=== PATIENT | male | born 1985 | race Caucasian/White ===

== ENCOUNTER 2022-01-13 21:34 | Emergency (ER) | payer MEDICAID ==
[2022-01-14] MEDS ORDERED: Proparacaine 0.5% Ophth Soln 15 ML Bottle EYERT ONE (00:21)
[2022-01-14] MEDS ORDERED: Fluorescein 1 MG Ophth Strip EYERT ONE (00:23)
[2022-01-14] MEDS ORDERED: Gentamicin 0.3% Ophth Soln 5 ML Bottle ONE (00:54)
[2022-01-14] MEDS ORDERED: Gentamicin 0.3% Ophth Soln 5 ML Bottle EYERT SCH (09:00)
== END 2022-01-14 00:58 | disposition home or self-care (01) ==
LOC: JD.ED 21:34
DX: S05.01XA Injury of conjunctiva and corneal abrasion without foreign body, right eye, initial encounter (principal); Z72.0 Tobacco use; W22.8XXA Striking against or struck by other objects, initial encounter
CPT/HCPCS: 99283

== ENCOUNTER 2024-01-28 03:54 | Emergency (ER) | payer MEDICAID, OTHER | END 2024-01-28 04:25 | LOC: JD.ED 03:54 | DX: Z02.89 Encounter for other administrative examinations (principal); F10.90 Alcohol use, unspecified, uncomplicated; Y90.9 Presence of alcohol in blood, level not specified | CPT/HCPCS: 99283 ==